=== PATIENT | male | born 1965 | race Caucasian/White ===

== ENCOUNTER 2020-04-22 13:52 | Outpatient (REF) | payer OTHER, SELFPAY ==
--- NOTE | 2020-04-22 14:50 | XR_ITS ---
EXAMINATION: XR ELBOW, LEFT CLINICAL INFORMATION: Fall with tender over elbow. COMPARISON: None TECHNIQUE: AP, lateral, and oblique views of the left elbow. FINDINGS: There is no visible fracture or dislocation or loose bodies. No bony erosive changes. The anterior and posterior fat pad sign is normal. There is a small olecranon process spur. The soft tissues are normal. XR/XR elbow LT min 3V IMPRESSION: Small olecranon process spur. No visible acute fracture or dislocation or subluxation seen.
== END 2020-04-22 13:53 | disposition home or self-care (01) ==
LOC: HO.XRAY 13:52
PROVIDERS: Absent Provider Internal Medicine; PCP Internal Medicine; Visit Provider Internal Medicine
DX: A69.23 Arthritis due to Lyme disease (principal)
CPT/HCPCS: 73080

== ENCOUNTER → 2020-05-27 13:07 | Outpatient (BNVA) | payer OTHER, SELFPAY | PROVIDERS: PCP Internal Medicine; Visit Provider Internal Medicine ==

== ENCOUNTER → 2020-07-02 15:50 | Outpatient (BNVA) | payer OTHER, SELFPAY | PROVIDERS: Visit Provider Internal Medicine ==

== ENCOUNTER 2021-01-20 09:41 | Day surgery (SDC) | payer OTHER, SELFPAY ==
[2021-01-15 09:53] VITALS: BMI 31.6
[2021-01-20 09:52] VITALS: BP 137/79; PULSE 91; RESP 17; TEMP 36.9; O2SAT 96; BMI 29.5
--- NOTE | 2021-01-20 10:15 | HO.ANESPROP2 ---
HPI - Anesthesia Eval Consult details Narrative: 55 yo male patient for colonoscopy PMFSH Active Problems Active Problems: All Active Problems (Updated 07/02/20 @ 21:58 by Soraya Lema MD) Lyme arthritis (Acute) Asthma. Very rare use of inhalers. Not used in years Past Medical History Medical History (Updated 01/20/21 @ 10:16 by Zakiya Rodriguez RN) Asthma Lyme arthritis Family History Family history of problems with anesthesia: No Surgical History Surgical History (Updated 01/20/21 @ 10:23 by Debbi Bush MD) H/O shoulder surgery History of Problems with Anesthesia: No Social History Social History Patient Tobacco Use Status: Former Tobacco user Use of substances other than those prescribed or required for medical reasons: No Are you DNR?: No Advance Directives: No Advance Directives Information Provided: Yes Recently lost weight without trying: No Nutrition Risks: No Nutritional Risk Meds Allergies Allergy/AdvReac Type Severity Reaction Status Date / Time No Known Allergies Allergy Verified 07/02/20 15:56 Home Medications Medication Instructions Recorded Confirmed Last Taken Type flu vacc [id number] 6mos up(PF) ml IM 04/22/20 07/02/20 Unknown History hydrocodone 5 mg-acetaminophen 325 tab PO 04/22/20 07/02/20 Unknown History mg tablet oxycodone 5 mg tablet mg PO 04/22/20 07/02/20 Unknown History Exam Exam Date and Time: January 20, 2021 1015 Height,Weight and Vital Signs: Height 5 ft 9 in Weight 90.718 kg Last Vital Signs Temp 98.4 F 01/20/21 09:52 Pulse 91 01/20/21 09:52 Resp 17 01/20/21 09:52 BP 137/79 01/20/21 09:52 Pulse Ox 96 01/20/21 09:52 Airway Mallampati Class: III TM Dist: >3cm Neck ROM: Full Loose/Missing/Broken Teeth: Yes (Some missing) Heart: RRR Lungs: CTAB Assessment and Plan Assessment Anesthesia Assessment: Anesthesia Plan Discussed and Chart Reviewed Final Anesthetic Review Family History of Problems with Anesthesia: No History of Problems with Anesthesia: No NPO: Yes ASA Class: II Final Preanesthetic Review: No Changes in Pt Med Stat, Meds/Allgs Chart Reviewed, Consent Obtained/Reviewed and Anes Risks/Benef Reviewed Patient Risk: Low Procedure Risk: Low Assessment/Block/Sedation in SS: Assess/Block/Sedation-SS Anesthetic Plan Anesthetic Plan: MAC: Disposition: Standard PACU
--- NOTE | 2021-01-20 10:58 | P.BOP_ITS ---
Brief Operative Note Date of Service: 01/20/21 Pre-op diagnosis: screening Post-op diagnosis: same Procedure: colonoscopy Surgeon: Casey Pierre Anesthesia: MAC Was an Ken[employer] Writer/Runner used for this Procedure?: No Estimated blood loss (mL): 0 Pathology: none sent Condition: stable Disposition: PACU
[2021-01-20 11:01] VITALS: BP 96/68; PULSE 83; RESP 18; TEMP 37.1; O2SAT 98
[2021-01-20 11:16] VITALS: BP 110/77; PULSE 70; RESP 18; TEMP 37.1; O2SAT 97
--- NOTE | 2021-01-20 17:54 | OP_ITS ---
SURGEON: Casey Pierre MD INDICATIONS: Colon cancer screening. PREOPERATIVE DIAGNOSIS: POSTOPERATIVE DIAGNOSIS: PROCEDURE PERFORMED: Colonoscopy to the terminal ileum. ESTIMATED BLOOD LOSS: COMPLICATIONS: ANESTHESIA: ASSISTANTS: SPECIMENS: MEDICATIONS: Monitored anesthesia care. DESCRIPTION OF PROCEDURE: History and physical performed. The risks and benefits of the procedure were explained to the patient. Informed consent was obtained. The patient was placed in the left lateral decubitus position. A digital rectal exam was performed and was found to be normal. The Olympus pediatric video colonoscope was introduced into the rectum and advanced to the cecum without difficulty. The cecum was identified by transillumination, palpation, and identification of ileocecal valve. Examination was performed and the scope was removed. He tolerated the procedure well and was taken to recovery area in stable condition. FINDINGS: The terminal ileum was briefly examined and appeared normal. The visualized colonic mucosa was normal. The quality of the prep was good. There was mild sigmoid diverticulosis. Retroflexed examination showed small internal hemorrhoids. IMPRESSION: Normal colonoscopy. RECOMMENDATIONS: 1. Follow up as needed. 2. Repeat colonoscopy is recommended in 10 years for average risk individuals. MD PRADEEP Marinelli/BEVERLY / [id number]
== END 2021-01-20 11:55 | disposition home or self-care (01) ==
PROVIDERS: PCP Internal Medicine; Visit Provider Internal Medicine Gastroenterology
PROC: 0DJD8ZZ Inspection of Lower Intestinal Tract, Via Natural or Artificial Opening Endoscopic (ICD-10-PCS; CPT 45378; principal; 2021-01-20 10:20)
DX: Z12.11 Encounter for screening for malignant neoplasm of colon (principal); Z87.19 Personal history of other diseases of the digestive system; K57.30 Diverticulosis of large intestine without perforation or abscess without bleeding; K64.8 Other hemorrhoids; J45.909 Unspecified asthma, uncomplicated; A69.20 Lyme disease, unspecified; Z79.899 Other long term (current) drug therapy
CPT/HCPCS: 45378

== ENCOUNTER 2024-01-17 13:06 | Outpatient (REF) | payer OTHER, SELFPAY ==
[2024-01-17 13:21] LABS: MANUAL DIFF FLAG NO
[2024-01-17 13:43] LABS: Basophils Percent Auto 0.3 % (0-2); Eosinophils Absolute Auto 0.1 X10*3/uL (0.0-0.4); Eosinophils Percent Auto 0.9 % (0-4); Hematocrit 42.3 % (42.0-52.0); Hemoglobin 14.4 g/dl (14.0-18.0); Imm Gran Abs Auto 0.05 X10*3/uL (0.00-0.03); Imm Gran Pct Auto 0.6 % (0.0-0.4); Lymphocytes Absolute Auto 1.9 X10*3/uL (1.2-4.9); Lymphocytes Percent Auto 21.8 % (20-40); Mean Corpuscular Hemoglobin 29.7 pg (27.0-33.0); Mean Corpuscular Volume 87.2 fL (80.0-98.0); Monocytes Absolute Auto 0.6 X10*3/uL (0.1-1.2); Monocytes Percent Auto 7.3 % (2-11); Neutrophils Absolute Auto 6.1 x10*3/uL (2.0-8.3); Neutrophils Percent Auto 69.1 % (45-73); Platelet Count 281 X10*3/uL (160-400); Red Blood Count 4.85 X10*6/uL (4.60-5.80); Red Cell Distribution Width 12.7 % (11.0-16.0); White Blood Count 8.8 X10*3/uL (4.8-10.8)
[2024-01-17 14:18] LABS: Alanine Aminotransferase 32 U/L (0-40); Albumin Level 4.3 g/dL (3.5-5.0); Alkaline Phosphatase 84 U/L (39-117); Anion Gap 9 (12-20); Aspartate Amino Transferase 19 U/L (5-37); Bilirubin Total 0.4 mg/dL (0.0-1.0); Blood Urea Nitrogen 11 mg/dL (9-16); Calcium 9.3 mg/dL (8.4-10.2); Carbon Dioxide 31 mmol/L (22-29); Chloride 104 mmol/L (96-108); Cholesterol 199 mg/dL (<200); Estimated Glomerular Filt Rate > 60; Glucose Fasting 100 mg/dL (60-99); HDL Cholesterol 38 mg/dL (>40); LDL Cholesterol Calculated 116 mg/dL (<100); Potassium 4.6 mmol/L (3.3-5.1); Sodium 139 mmol/L (135-145); Total Protein 6.9 g/dL (6.5-8.0); Triglycerides 226 mg/dL (<150)
[2024-01-17 14:27] LABS: Prostate Specific Antigen 0.37 ng/mL (<0.05-4.0)
== END 2024-01-17 13:07 | disposition home or self-care (01) ==
LOC: HO.LAB 13:06
PROVIDERS: PCP Internal Medicine; Visit Provider Internal Medicine
DX: R53.83 Other fatigue (principal); E78.5 Hyperlipidemia, unspecified; Z12.5 Encounter for screening for malignant neoplasm of prostate
CPT/HCPCS: 36415; 80053; 80061; 84153; 85025